=== PATIENT | male | born 1960 | race Caucasian/White ===

== ENCOUNTER 2021-03-17 17:39 | Emergency (ER) | payer SELFPAY ==
[~2021-03-17] VITALS: Ht 185.4 cm; Wt 84.0 kg
[2021-03-17 17:40] VITALS: BP 162/116
--- NOTE | 2021-03-17 17:40 | NUR ---
[place] [facility] [place] [employer] [place] heavy ETOH use and difficulty walking pt repors that he desn' ususally drink alcohol, but that he is mouning the loss of his wifewho was killed by a drunk powder truck driver a couple of weeks ago. pt denies SI/HI. calm and cooperative pt is ambulatory but unsteady. reports that he does have family in the area for support. pt resting on gurney
--- NOTE | 2021-03-17 17:45 | NUR ---
[facility] [employer]IAN
--- NOTE | 2021-03-17 17:53 | NUR ---
Kathrin CHRISTINA has bene o bedside for eval. pt resting. lights dimmed for comfort
--- NOTE | 2021-03-17 18:00 | NUR ---
pt has amblated to BR without assist. well tolerated. pt escorted back to [facility]
--- NOTE | 2021-03-17 18:20 | NUR ---
attempted to enter room to assess pt, pt not ihn room. upon investigation, pt has eloped from department
== END 2021-03-17 18:35 | disposition left against medical advice (07) ==
LOC: ED 18:15
DX: F10.220 Alcohol dependence with intoxication, uncomplicated (principal); I11.0 Hypertensive heart disease with heart failure; I50.9 Heart failure, unspecified; F17.210 Nicotine dependence, cigarettes, uncomplicated; Y90.0 Blood alcohol level of less than 20 mg/100 ml
CPT/HCPCS: 99283